=== PATIENT | female | born 1960 | race Caucasian/White ===

== ENCOUNTER 2019-12-31 10:13 | Outpatient (CLI) | payer OTHER, SELFPAY ==
--- NOTE | 2019-12-31 16:00 | DIABASSESS_ITS ---
DESCRIPTION/ASSESSMENT: Mel Parker requests a diabetes self management consult to discuss ways to make her Freestyle Renuka possible to wear, and to improve glycemic control. Overall, she recognizes that when she tested blood sugars more often before and after meals and was careful with carbohydrate she was able to get her A1c around 6.5. Food Guidelines - Mel eats 3 meals a day and snacks between most meals and bedtime. She is mindful of carbohydrate with label reading but does not count carbohydrate grams or servings. She has tracked her food using the [employer] aretha. Physical Activity - no regular physical activity other than activities of daily living. Medication - Takes 55-65u Basaglar nightly, adjusting it based on her blood sugar. She has used Victoza in the past with effect, but her insurance would no longer cover this and she is given Bydureon for which she does not see results. She takes Metformin 500mg BID. She has been on gimepiride in the past. Monitoring - She likes having the Renuka however it causes a rash where it is placed. She has tried Skin tac protective layer without benefit. Mel has frequent hypoglycemic episodes and lives in fear of them. Coping - Mel admits to stress and depression due to the of a loved one. She feels she is getting out of it, however she also admits to sleeping poorly. INTERVENTION: DSME is provided in the following AADE 7 areas based on patients interest and assessment of needs: Food Guidelines - brief review of diabetes food guide. She is aware that when she has toast with breakfast her lunch blood sugar is 200+, but if she does not eat a full slice it is close to her fasting blood sugar. Medication - discussed action of her medications. Discussed possible cause of hypoglycemia being dosing her basal for both basal and bolus insulin needs. Discussed mealtime insulin in terms of insulin for carbohydrate and insulin for correction and gave examples. Calculated 1 unit covers 10grams and 1 unit corrects 30mg/dl and she voices understanding. Discussed decreased likelihood of hypoglycemia if she is not dosing basal insulin to cover food and that the initiation would be gradual to understand effect. Discussed current need to feed insulin which interferes with weight loss goals. Explained decreased basal needs if mealtime insulin is started. Discussed GLP1 agonist and SGLT2 inhibitors including action and side effects. Monitoring - Explored options for barriers to Renuka adhesive and have ordered one other type she has not tried, although it is less of a barrier than what she has tried. She understands insurance covers Dexcom G6 if she takes mealtime insulin. Coping - discussed effect of poor sleep and stress on blood sugars but did not discuss coping strategies for both. She feels counseling has helped her. ACTION PLAN: Mel will: track carbohydrate in [employer]; document blood sugars premeal and bedtime for 3 days Take 55u Basaglar consistently to prevent hypoglycemia. Based on results: consider taking mealtime insulin at 1 unit covers 10 grams and 1 unit corrects 30mg/dl. We will provide an insulin dosing chart if this is the plan. Individual DSME/T __2_ units billed TIME IN: 1600 OUT: 1705 No DM group education series being offered at this time.
--- NOTE | 2020-01-11 11:27 | TELEFU_ITS ---
TC to Mel for follow up. Mel sent in her blood sugars and food log from [facility]. Her food record indicates 20-42 grams carbohydrate per meal; if she has an evening snack, more than half her carbohydrate comes after 6PM when she is least active. Fasting blood sugar 120-150; pre-lunch 99-157; pre-supper 111-176; pre-bed 140- 200. Unable to fully explain glycemic variation with based on food intake. She didn't feel well one day and had a stressful day on day 2. She is taking 55u Lantus and Bydureon which she feels does not feel is helping much. Discussed medication alternatives. She may benefit from mealtime insulin for supper especially, or for high carbohydrate meals. Alternatively, reviewed again medication options of pressing for Ozempic to replace Bydureon; or trying [id number] prior to using mealtime insulin for cardio protection and weight loss. Sent her [employer] no-sting skin barrier film to try with her Freestyle Renuka. Will follow up by telephone. Please do not bill for this service.
--- NOTE | 2020-03-24 14:48 | TELEFU_ITS ---
TC to Mel Parker per request from Alexa Fernandez with goal of discussing insulin action and glycemic response as well as discussing alternative CGM sources. Mel is clear she takes 1 unit for 10 grams carbohydrate plus insulin correction at 1 unit corrects 50mg/dl above 100mg/dl. Subsequently she has been advised to add 1 unit to the above calculations. Discussed action of Novolog dose. Discussed her response. Discussed potential of basal/bolus ratio eventually working toward closer to 1:1 so that basal insulin is not correcting high blood sugar overnight. Discussed possiblility of a Dexcom G6 for adhesive concerns with the Freestyle Renuka. I have called [employer] and they will be sending Mel sample sensors to place to assess skin reaction and stability of the adhesive contact. Mel will contact me if she has questions or concerns. Bea Vyas, LORENZO, CDE Please do not bill for this service.
== END 2019-12-31 10:33 ==
PROVIDERS: PCP Internal Medicine; Visit Provider Dietitian, Registered
DX: E11.9 Type 2 diabetes mellitus without complications (principal); Z71.3 Dietary counseling and surveillance; Z79.4 Long term (current) use of insulin
CPT/HCPCS: G0108

== ENCOUNTER 2020-09-24 19:56 | Outpatient (REF) | payer OTHER, SELFPAY ==
[2020-09-24 21:13] LABS: ALT 36 U/L (14-59); AST 18 U/L (15-37); Alkaline Phosphatase 81 U/L (46-116); Anion Gap 9.9 mmol/L (3-11); BUN 16 mg/dL (7-18); Bilirubin, Total 0.4 mg/dL (0.2-1.0); CO2 24.1 mmol/L (21.0-32.0); CREATININE 0.86 mg/dL (0.55-1.02); Calcium 10.7 mg/dL (8.5-10.1); Chloride 100 mmol/L (98-107); Glucose 146 mg/dL (74-106); LDL CHOLESTEROL 111 mg/dL (<100); Sodium 134 mmol/L (136-145); TSH 2.27 uIU/mL (0.36-3.74); Total Protein 7.3 g/dL (6.4-8.2)
[2020-09-24 21:42] LABS: COMMENT (LAB VIEW ONLY) 36.47 mg/dL; Microalb ug/mg Crea 18.1 ug/mg Cr
== END 2020-09-24 20:16 ==
LOC: NCHCN 19:56
PROVIDERS: PCP Internal Medicine; Visit Provider Internal Medicine
DX: E11.9 Type 2 diabetes mellitus without complications (principal)
CPT/HCPCS: 80053; 83721; 82043; 82570; 84443

== ENCOUNTER 2022-02-11 20:28 | Outpatient (REF) | payer MEDICAID, SELFPAY ==
[2022-02-11 21:47] LABS: Anion Gap 9.6 mmol/L (3-11); BUN 11 mg/dL (7-18); CO2 25.4 mmol/L (21.0-32.0); CREATININE 0.6 mg/dL (0.55-1.02); Calcium 10.1 mg/dL (8.5-10.1); Chloride 104 mmol/L (98-107); Glucose 102 mg/dL (74-106); Potassium 4.4 mmol/L (3.5-5.1); Sodium 139 mmol/L (136-145); TSH 2.77 uIU/mL (0.36-3.74)
== END 2022-02-11 20:29 | disposition home or self-care (01) ==
LOC: NCHCN 20:28
PROVIDERS: PCP Internal Medicine; Visit Provider Internal Medicine
DX: E03.9 Hypothyroidism, unspecified (principal); I10 Essential (primary) hypertension
CPT/HCPCS: 80048; 84443

== ENCOUNTER 2023-02-23 13:24 | Outpatient (REF) | payer MEDICAID, SELFPAY ==
[2023-02-23 20:36] LABS: ALT 30 U/L (14-59); Anion Gap 9.4 mmol/L (3-11); BUN 13 mg/dL (7-18); CO2 25.6 mmol/L (21.0-32.0); CREATININE 0.8 mg/dL (0.55-1.02); Calcium 10.5 mg/dL (8.5-10.1); Calculated LDL 89 mg/dL (<100); Chloride 101 mmol/L (98-107); Cholesterol 180 mg/dL (<200); Estimated GFR 82.23 (mL/min/1.73m2); Glucose 147 mg/dL (74-106); HDL Cholesterol 59 mg/dL (40-60); Sodium 136 mmol/L (136-145); TSH 4.05 uIU/mL (0.36-3.74); Triglyceride 162 mg/dL (<150)
[2023-02-23 20:51] LABS: Creatine Kinase 87 U/L (26-192)
== END 2023-02-23 13:25 | disposition home or self-care (01) ==
LOC: NCHCN 13:24
PROVIDERS: PCP Internal Medicine; Visit Provider Internal Medicine
DX: E11.9 Type 2 diabetes mellitus without complications (principal); I10 Essential (primary) hypertension; E03.9 Hypothyroidism, unspecified
CPT/HCPCS: 80048; 80061; 82550; 84443; 84460

== ENCOUNTER 2024-03-08 14:42 | Outpatient (REF) | payer MEDICARE, SELFPAY ==
[2024-03-08 19:23] LABS: ALT 21 U/L (14-59); Anion Gap 9.8 mmol/L (3-11); BUN 15 mg/dL (7-18); CO2 26.2 mmol/L (21.0-32.0); CREATININE 0.8 mg/dL (0.55-1.02); Calculated LDL 103 mg/dL (<100); Chloride 100 mmol/L (98-107); Cholesterol 193 mg/dL (<200); Creatine Kinase 66 U/L (26-192); Estimated GFR 81.72 (mL/min/1.73m2); Glucose 201 mg/dL (74-106); HDL Cholesterol 60 mg/dL (40-60); Potassium 4.4 mmol/L (3.5-5.1); Sodium 136 mmol/L (136-145); TSH 2.95 uIU/Ml (0.36-3.74); Triglyceride 152 mg/dL (<150)
== END 2024-03-08 14:43 | disposition home or self-care (01) ==
LOC: NCHCN 14:42
PROVIDERS: PCP Internal Medicine; Visit Provider Internal Medicine
DX: I10 Essential (primary) hypertension (principal)
CPT/HCPCS: 80048; 80061; 82550; 84443; 84460

== ENCOUNTER 2024-07-26 19:35 | Outpatient (REF) | payer MEDICARE, SELFPAY ==
[2024-07-26 20:02] LABS: COMMENT (LAB VIEW ONLY) 142.51 mg/dL; Microalb ug/mg Crea 12.8 ug/mg Cr
== END 2024-07-26 19:36 | disposition home or self-care (01) ==
LOC: NCHCN 19:35
PROVIDERS: PCP Internal Medicine; Visit Provider Internal Medicine
DX: E11.9 Type 2 diabetes mellitus without complications (principal)
CPT/HCPCS: 82043; 82570

== ENCOUNTER 2025-02-06 17:15 | Outpatient (REF) | payer MEDICARE, SELFPAY ==
[2025-02-06 21:22] LABS: ALT 19 U/L (14-59); Anion Gap 5.6 mmol/L (3-11); BUN 14 mg/dL (7-18); CO2 29.4 mmol/L (21.0-32.0); CREATININE 0.8 mg/dL (0.55-1.02); Calcium 10.8 mg/dL (8.5-10.1); Calculated LDL 103 mg/dL (<100); Chloride 102 mmol/L (98-107); Cholesterol 195 mg/dL (<200); Estimated GFR 81.21 (mL/min/1.73m2); Glucose 196 mg/dL (74-106); HDL Cholesterol 64 mg/dL (>or=50); Potassium 4.8 mmol/L (3.5-5.1); Sodium 137 mmol/L (136-145); TSH 2.33 uIU/mL (0.36-3.74); Triglyceride 142 mg/dL (<150)
[2025-02-06 22:52] LABS: Creatine Kinase 54 U/L (26-192)
[2025-02-07 18:36] LABS: HIV-1/2 Ag & Ab Screen Negative (Negative)
[2025-02-07 18:43] LABS: Hepatitis C Ab w Rflx HCV PCR Negative (Negative)
== END 2025-02-06 17:16 | disposition home or self-care (01) ==
LOC: NCHCN 17:15
PROVIDERS: PCP Internal Medicine; Visit Provider Internal Medicine
DX: E78.5 Hyperlipidemia, unspecified (principal); E03.9 Hypothyroidism, unspecified; I10 Essential (primary) hypertension; Z11.4 Encounter for screening for human immunodeficiency virus [HIV]
CPT/HCPCS: 80048; 80061; 82550; 86803; 87389; 84443; 84460

== ENCOUNTER 2025-11-13 10:18 | Outpatient (REF) | payer MEDICARE, SELFPAY ==
[2025-11-13 21:42] LABS: TSH (W/Ref FT4) 3.04 uIU/mL (0.55-4.78)
[2025-11-13 21:50] LABS: Abs Immature Grans 0.02 10^3/uL (0.0-0.06); HCT 38.9 % (36.0-46.0); HGB 12.7 g/dL (11.2-15.7); Immature Grans % 0.3 %; MCH 30.2 pg (27.0-33.0); MCHC 32.6 % (32.0-36.0); MCV 92 fL (80-95); MPV 10.4 fL (8.0-11.0); Platelet Count 314 10^3/uL (130-400); RBC 4.21 10^6/uL (3.93-5.22); RDW 12.4 % (11.7-14.6); RDW-SD 42.0 fL; WBC 5.92 10^3/uL (4.4-10.8)
[2025-11-13 22:59] LABS: Microalb ug/mg Crea 8.1 ug/mg Cr
== END 2025-11-13 10:19 | disposition home or self-care (01) ==
LOC: NCHCN 10:18
PROVIDERS: PCP Internal Medicine; Visit Provider Nurse Practitioner Family
DX: R53.82 Chronic fatigue, unspecified (principal); E11.9 Type 2 diabetes mellitus without complications
CPT/HCPCS: 82043; 82570; 84443; 85025